=== PATIENT | male | born 1960 | race Caucasian/White ===

== ENCOUNTER 2017-01-17 22:01 | Emergency (ER) | payer OTHER ==
[2017-01-17 22:02] VITALS: BP 136/80; PULSE 100; RESP 20; TEMP 98.6; O2SAT 95
[2017-01-17 22:40] VITALS: O2SAT 96
[2017-01-17] MEDS ORDERED: RESP: ALBUTEROL 2.5 MG/IPRATROPIUM 0.5 MG NEB (SCH) ONE ×2 (22:40)
[2017-01-17] MEDS ORDERED: LORazepam 2 MG/ML VIAL IV PUSH ONE (22:45)
[2017-01-17] MEDS ORDERED: SODIUM CHLORIDE 0.9% FLUSH 10 ML FLUSH IVF PRN (22:45)
[2017-01-17] MEDS ORDERED: methylPREDNISolone SOD SUCC 125 MG/2 ML VIAL IVP ONE (22:45)
[2017-01-17] MEDS: RESP: ALBUTEROL 2.5 MG/IPRATROPIUM 0.5 MG NEB (SCH) INH ×2 (22:48→22:49)
--- NOTE | 2017-01-17 22:49 | PD ---
HPI Chief Complaint: Respiratory Symptoms Time Seen by Provider: 22:42 Travel History International Travel<30 days: No Contact w/Intl Traveler<30days: No Traveled to known affect area: No History of Present Illness HPI Patient is a 56-year-old male with history of COPD, hypertension, presents to emergency room complaints of shortness of breath. Patient reports that he has history of smoking, reports that he quit 3 years ago. Reports that he is here for [facility] as he is an alcoholic. Patient reports that he was wheezing and short of breath, reports that they would not see him due to his medical condition. Reports that he did not use anything his breathing treatments today as he did not have anything on him. Reports that he has been short of breath and wheezing all day. Patient denies any fevers or chills, no other complaints. Patient also endorses that he is an alcoholic, last was last night. Reports that he drinks 1.75 liters of vodka per day. Last drink was last night. PFSH Past Medical History Heart Rhythm Problems: Yes (PT STATES HIS 'HEART STOPS BEATING SOMETIMES' ) COPD: Yes Medical other: Yes (PROSTATE ISSUES ) Past Surgical History Other Surgery: Yes (BACK SX, COLON RESECTION ) Social History Alcohol Use: Yes (EVERYDAY ) Tobacco Use: No Substance Use: No Allergies-Medications (Allergen,Severity, Reaction): Coded Allergies: Aspirin (Verified Allergy, Intermediate, 01/17/17) Naprosyn (Verified Allergy, Intermediate, 01/17/17) Nonsteroidal Anti-Inflammatory Agts (Verified Allergy, Intermediate, ) Reported Meds & Prescriptions Reported Meds & Active Scripts Active Reported Tums E-X 750 (Calcium Carbonate (Antacid)) 750 Mg Chew 750 Mg CHEW DAILY PRN Spiriva Handihaler (Tiotropium Inh) 18 Mcg Cap 18 Mcg INH DAILY 1 capsule = 18 mcg Duoneb (Ipratropium-Albuterol Neb) 0.5-2.5 Mg/3 Ml Neb 1 Nebule INH Q4HR NEB PRN Omeprazole 20 Mg Tab 20 Mg PO DAILY Ambien (Zolpidem Tartrate) 5 Mg Tab 5 Mg PO HS PRN Doxepin (Doxepin HCl) 10 Mg Cap 10 Mg PO HS Metoprolol Tartrate 25 Mg Tab 25 Mg PO BID Advair Hfa 12 GM Inh (Fluticasone-Salmeterol 12 GM Inh) Unknown Strength Aer Unknown Dose INH BID Review of Systems General / Constitutional: No: Fever, Chills Eyes: No: Visual changes HENT: No: Headaches Cardiovascular: No: Chest Pain or Discomfort, Palpitations Respiratory: Positive: Cough, Shortness of Breath, Wheezing Gastrointestinal: No: Abdominal Pain Genitourinary: No: Dysuria Musculoskeletal: No: Pain Skin: No Rash Neurologic: No: Weakness Psychiatric: No: Depression Endocrine: No: Polydipsia Hematologic/Lymphatic: No: Easy Bruising Physical Exam Narrative GENERAL: Moderate distress SKIN: Focused skin assessment warm/dry. HEAD: Atraumatic. Normocephalic. EYES: Pupils equal and round. No scleral icterus. No injection or drainage. ENT: No nasal bleeding or discharge. Mucous membranes pink and moist. NECK: Trachea midline. No JVD. CARDIOVASCULAR: Regular rate and rhythm. No murmur appreciated. RESPIRATORY: Patient with scattered wheezing to upper and lower lobes of lungs on exam GASTROINTESTINAL: Abdomen soft, non-tender, nondistended. Hepatic and splenic margins not palpable. MUSCULOSKELETAL: No obvious deformities. No clubbing. No cyanosis. No edema. NEUROLOGICAL: Awake and alert. No obvious cranial nerve deficits. Motor grossly within normal limits. Normal speech. PSYCHIATRIC: Appropriate mood and affect; insight and judgment normal. Data Data Last Documented VS Vital Signs Date Time Temp Pulse Resp B/P Pulse Ox O2 Delivery O2 Flow Rate FiO2 01/18/17 00:42 98 22 139/76 95 Room Air 01/17/17 22:02 98.6 Orders Albuterol-Ipratropium Neb (Duoneb Neb) (01/17/17 22:40) Albuterol-Ipratropium Neb (Duoneb Neb) (01/17/17 22:40) Complete Blood Count With Diff (01/17/17 22:43) Comprehensive Metabolic Panel (01/17/17 22:43) B-Type Natriuretic Peptide (01/17/17 22:43) Act Partial Throm Time (Ptt) (01/17/17 22:43) Prothrombin Time / Inr (Pt) (01/17/17 22:43) Magnesium (Mg) (01/17/17 22:43) Urinalysis - C+S If Indicated (01/17/17 22:43) Iv Access Insert/Monitor (01/17/17 22:43) Electrocardiogram (01/17/17 22:43) Ecg Monitoring (01/17/17 22:43) Oximetry (01/17/17 22:43) Chest, Single Ap (01/17/17 22:43) Sodium Chloride 0.9% Flush (Ns Flush) (01/17/17 22:45) Methylprednisolone So Succ Inj (Solumedr (01/17/17 22:45) Albuterol-Ipratropium Neb (Duoneb Neb) (01/17/17 22:45) Lorazepam Inj (Ativan Inj) (01/17/17 22:45) Labs Laboratory Tests Test 01/17/17 01/17/17 22:50 23:35 White Blood Count 6.5 TH/MM3 Red Blood Count 4.52 MIL/MM3 Hemoglobin 9.4 GM/DL Hematocrit 31.2 % Mean Corpuscular Volume 69.1 FL Mean Corpuscular Hemoglobin 20.8 PG Mean Corpuscular Hemoglobin 30.1 % Concent Red Cell Distribution Width 18.8 % Platelet Count 219 TH/MM3 Mean Platelet Volume 7.9 FL Neutrophils (%) (Auto) 72.3 % Lymphocytes (%) (Auto) 16.2 % Monocytes (%) (Auto) 9.7 % Eosinophils (%) (Auto) 1.0 % Basophils (%) (Auto) 0.8 % Neutrophils # (Auto) 4.7 TH/MM3 Lymphocytes # (Auto) 1.0 TH/MM3 Monocytes # (Auto) 0.6 TH/MM3 Eosinophils # (Auto) 0.1 TH/MM3 Basophils # (Auto) 0.1 TH/MM3 CBC Comment DIFF FINAL Differential Comment Prothrombin Time 10.7 SEC Prothromb Time International 1.0 RATIO Ratio Activated Partial 24.0 SEC Thromboplast Time Sodium Level 141 MEQ/L Potassium Level 4.1 MEQ/L Chloride Level 102 MEQ/L Carbon Dioxide Level 28.0 MEQ/L Anion Gap 11 MEQ/L Blood Urea Nitrogen 14 MG/DL Creatinine 1.15 MG/DL Estimat Glomerular Filtration 65 ML/MIN Rate Random Glucose 98 MG/DL Calcium Level 8.5 MG/DL Magnesium Level 2.1 MG/DL Total Bilirubin 0.4 MG/DL Aspartate Amino Transf 122 U/L (AST/SGOT) Alanine Aminotransferase 200 U/L (ALT/SGPT) Alkaline Phosphatase 103 U/L B-Type Natriuretic Peptide 15 PG/ML Total Protein 7.9 GM/DL Albumin 3.8 GM/DL Urine Color YELLOW Urine Turbidity CLEAR Urine pH 5.5 Urine Specific Milo 1.025 Urine Protein TRACE mg/dL Urine Glucose (UA) NEG mg/dL Urine Ketones 10 mg/dL Urine Occult Blood NEG Urine Nitrite NEG Urine Bilirubin NEG Urine Urobilinogen LESS THAN 2.0 MG/DL Urine Leukocyte Esterase NEG Urine RBC LESS THAN 1 /hpf Urine WBC 1 /hpf Urine Squamous Epithelial <1 /hpf Cells Urine Mucus FEW /lpf Microscopic Urinalysis Comment CULT NOT INDICATED MDM Medical Decision Making Medical Screen Exam Complete: Yes Emergency Medical Condition: Yes Interpretation(s) EKG at 2240: NSR at 93bpm, qt/qtc: 356/407, no acute st or t wave changes Vital Signs Date Time Temp Pulse Resp B/P Pulse Ox O2 Delivery O2 Flow Rate FiO2 01/17/17 22:40 96 01/17/17 22:02 98.6 100 20 136/80 95 Room Air Differential Diagnosis Differential includes COPD exacerbation, pneumonia, electrolyte abnormality, impending DTs Narrative Course Patient is a 56-year-old male who presents to emergency room with complaints of shortness of breath and wheezing. Reports that he has been symptomatic all day , he has not been able to use any of his neb treatments as he forgot them at home. Reports that he is a past smoker. Denies fever/chills. Reports that he is an alcoholic, he is here for [facility] for alcohol detox. Patient is wheezing on exam, plan to give neb treatments and steroids. Will observe patient Vital Signs Date Time Temp Pulse Resp B/P Pulse Ox O2 Delivery O2 Flow Rate FiO2 01/18/17 00:42 98 22 139/76 95 Room Air 01/17/17 22:53 94 Simple Mask 01/17/17 22:40 96 01/17/17 22:02 98.6 100 20 136/80 95 Room Air Laboratory Tests Test 01/17/17 01/17/17 22:50 23:35 White Blood Count 6.5 TH/MM3 (4.0-11.0) Red Blood Count 4.52 MIL/MM3 (4.50-5.90) Hemoglobin 9.4 GM/DL (13.0-17.0) Hematocrit 31.2 % (39.0-51.0) Mean Corpuscular Volume 69.1 FL (80.0-100.0) Mean Corpuscular Hemoglobin 20.8 PG (27.0-34.0) Mean Corpuscular Hemoglobin 30.1 % Concent (32.0-36.0) Red Cell Distribution Width 18.8 % (11.6-17.2) Platelet Count 219 TH/MM3 (150-450) Mean Platelet Volume 7.9 FL (7.0-11.0) Neutrophils (%) (Auto) 72.3 % (16.0-70.0) Lymphocytes (%) (Auto) 16.2 % (9.0-44.0) Monocytes (%) (Auto) 9.7 % (0.0-8.0) Eosinophils (%) (Auto) 1.0 % (0.0-4.0) Basophils (%) (Auto) 0.8 % (0.0-2.0) Neutrophils # (Auto) 4.7 TH/MM3 (1.8-7.7) Lymphocytes # (Auto) 1.0 TH/MM3 (1.0-4.8) Monocytes # (Auto) 0.6 TH/MM3 (0-0.9) Eosinophils # (Auto) 0.1 TH/MM3 (0-0.4) Basophils # (Auto) 0.1 TH/MM3 (0-0.2) CBC Comment DIFF FINAL Differential Comment Prothrombin Time 10.7 SEC (9.8-11.6) Prothromb Time International 1.0 RATIO Ratio Activated Partial 24.0 SEC Thromboplast Time (24.3-30.1) Sodium Level 141 MEQ/L (136-145) Potassium Level 4.1 MEQ/L (3.5-5.1) Chloride Level 102 MEQ/L (98-107) Carbon Dioxide Level 28.0 MEQ/L (21.0-32.0) Anion Gap 11 MEQ/L (5-15) Blood Urea Nitrogen 14 MG/DL (7-18) Creatinine 1.15 MG/DL (0.60-1.30) Estimat Glomerular Filtration 65 ML/MIN (>89) Rate Random Glucose 98 MG/DL (74-106) Calcium Level 8.5 MG/DL (8.5-10.1) Magnesium Level 2.1 MG/DL (1.5-2.5) Total Bilirubin 0.4 MG/DL (0.2-1.0) Aspartate Amino Transf 122 U/L (15-37) (AST/SGOT) Alanine Aminotransferase 200 U/L (12-78) (ALT/SGPT) Alkaline Phosphatase 103 U/L (45-117) B-Type Natriuretic Peptide 15 PG/ML (0-100) Total Protein 7.9 GM/DL (6.4-8.2) Albumin 3.8 GM/DL (3.4-5.0) Urine Color YELLOW (YELLW/STRAW) Urine Turbidity CLEAR (CLEAR) Urine pH 5.5 (5.0-8.5) Urine Specific Milo 1.025 (1.002-1.035) Urine Protein TRACE mg/dL (NEG-TRACE) Urine Glucose (UA) NEG mg/dL (NEG) Urine Ketones 10 mg/dL (NEG) Urine Occult Blood NEG (NEG) Urine Nitrite NEG (NEG) Urine Bilirubin NEG (NEG) Urine Urobilinogen LESS THAN 2.0 MG/DL (LESS THAN 2.0) Urine Leukocyte Esterase NEG (NEG) Urine RBC LESS THAN 1 /hpf (0-3) Urine WBC 1 /hpf (0-5) Urine Squamous Epithelial <1 /hpf (0-5) Cells Urine Mucus FEW /lpf (OCC) Microscopic Urinalysis Comment CULT NOT INDICATED Last Impressions Chest X-Ray 01/17/17 7399 Signed Impressions: Service Date/Time: Tuesday, January 17, 2017 22:41 - CONCLUSION: 1. Hyperaeration characteristic of COPD 2. No acute pulmonary infiltrates. Gutierrez Madrid MD Patient reevaluated, patient feeling much better at this time. We'll give steroids, nebs treatments and have patient follow up with her primary care doctor. Patient will return to ER as needed Diagnosis Primary Impression: COPD (chronic obstructive pulmonary disease) Qualified Code: J44.1 - Chronic obstructive pulmonary disease with acute exacerbation Patient Instructions: General Instructions Additional Instructions: Please follow up with your primary care doctor Return to ER as needed Please take all medications as prescribed Med/Other Pt SpecificInfo: Prescription(s) given Scripts Azithromycin 500 Mg [id number] Mg PO DAILY #5 TAB Ref 0 Prov:Roberta Villegas DO 7/20/17 Prednisone 20 Mg Tab20 Mg PO BID 5 Days Ref 0 Prov:Roberta Villegas DO 01/18/17 Albuterol 8.5 GM Inh (Proair Hfa 8.5 GM Inh)90 Mcg/Act Aer2 Puff INH Q4-6H PRN ( SHORTNESS OF BREATH) #1 INHALER Ref 0 108 mcg/actuation Prov:Roberta Villegas DO 01/18/17 Disposition: 01 DISCHARGE HOME Condition: Stable Roberta Villegas DO Jan 17, 2017 22:49
[2017-01-17 22:53] VITALS: O2SAT 94
[2017-01-17 23:05] LABS: AUTOMATED NEUTROPHIL # 4.7 TH/MM3 (1.8-7.7); BASOPHIL # 0.1 TH/MM3 (0-0.2); BASOPHIL % 0.8 % (0.0-2.0); EOSINOPHIL # 0.1 TH/MM3 (0-0.4); HEMATOCRIT 31.2 % (39.0-51.0); HEMO FLAGS DIFF FINAL; LYMPH % 16.2 % (9.0-44.0); MEAN CELL VOLUME 69.1 FL (80.0-100.0); MEAN CORPUSCULAR HEMOGLOBIN 20.8 PG (27.0-34.0); MEAN CORPUSCULAR HGB CONC 30.1 % (32.0-36.0); MONO % 9.7 % (0.0-8.0); NEUT % 72.3 % (16.0-70.0); PLATELET COUNT 219 TH/MM3 (150-450); RED BLOOD COUNT 4.52 MIL/MM3 (4.50-5.90); RED CELL DISTRIBUTION WIDTH 18.8 % (11.6-17.2); WHITE BLOOD COUNT 6.5 TH/MM3 (4.0-11.0)
--- NOTE | 2017-01-17 23:07 | RADRPT ---
EXAM DATE/TIME: 01/17/2017 22:41 [place] COMPARISON: No previous studies available for comparison. INDICATIONS : Shortness of breath. MEDICAL HISTORY : Emphysema. SURGICAL HISTORY : None. ENCOUNTER: Initial ACUITY: 1 day PAIN SCORE: 0/10 LOCATION: Bilateral chest FINDINGS: A single view of the chest demonstrates the lungs to be symmetrically aerated without evidence of mas s, infiltrate or effusion. There is hyperaeration of both lung beltrán. There are some calcified righ t hilar lymph nodes. The cardiomediastinal contours are unremarkable. Osseous structures are intact. CONCLUSION: 1. Hyperaeration characteristic of COPD 2. No acute pulmonary infiltrates. Gutierrez Madrid MD on January 17, 2017 at 23:05 Board Certified Radiologist. This report was verified electronically.
[2017-01-17] MEDS ORDERED: ADVA115A INH (23:12)
[2017-01-17 23:13] LABS: PROTHROMBIN TIME - PATIENT 10.7 SEC (9.8-11.6)
[2017-01-17] MEDS ORDERED: DOXE10CA PO (23:19)
[2017-01-17] MEDS ORDERED: IPRASOL INH (23:19)
[2017-01-17] MEDS ORDERED: AMBI5TAB PO (23:19)
[2017-01-17] MEDS ORDERED: CALC750C21 CHEW (23:19)
[2017-01-17] MEDS ORDERED: SPIRCAP INH (23:19)
[2017-01-17] MEDS ORDERED: OMEP20TA PO (23:19)
[2017-01-17] MEDS ORDERED: METO25TA3 PO (23:19)
[2017-01-17 23:42] LABS: ALT (GPT) 200 U/L (12-78); ANION GAP 11 MEQ/L (5-15); AST (GOT) 122 U/L (15-37); BLOOD UREA NITROGEN 14 MG/DL (7-18); CHLORIDE 102 MEQ/L (98-107); GLOMERULAR FILTRATION RATE 65 ML/MIN (>89); MAGNESIUM 2.1 MG/DL (1.5-2.5); POTASSIUM 4.1 MEQ/L (3.5-5.1); SODIUM (NA) 141 MEQ/L (136-145)
[2017-01-17 23:44] LABS: ALKALINE PHOSPHATASE 103 U/L (45-117); TOTAL BILIRUBIN ADULT 0.4 MG/DL (0.2-1.0)
[2017-01-17 23:55] LABS: BLOOD, URINE NEG (NEG); COMMENT (UR) CULT NOT INDICATED; CULTURE IF INDICATED CULT NOT INDICATED; GLUCOSE,URINE NEG (NEG); KETONE, URINE 10 mg/dL (NEG); MUCUS URINE FEW /lpf (OCC); NITRITE,URINE NEG (NEG); PH, URINE 5.5 (5.0-8.5); SQUAMOUS EPITHELIAL CELL URINE <1 /hpf (0-5); URINE COLOR YELLOW (YELLW/STRAW)
[2017-01-18 00:42] VITALS: BP 139/76; PULSE 98; RESP 22; O2SAT 95
[2017-01-18] MEDS ORDERED: ALBUAER3 INH (03:18)
[2017-01-18] MEDS ORDERED: AZIT500T2 PO (03:18)
[2017-01-18] MEDS ORDERED: PRED20 PO (03:18)
[2017-01-18] MEDS ORDERED: ALBUTEROL SULFATE 90 MCG/ACT HFA 8 GM INHALER INH ONE (04:00)
--- NOTE | 2017-01-18 14:55 | EKG ---
Date Performed: 01/17/2017 Time Performed: 22:40:05 PTAGE: 56 years EKG: Sinus rhythm WITH OCCASIONAL VENTRICULAR PREMATURE COMPLEXESCompared to previous tracing, the patient is now long er bradycardic BORDERLINE ECG NO PREVIOUS TRACING DOCTOR: Tanya Rachel Interpretating Date/Time 01/18/2017 14:53:17
== END 2017-01-18 04:20 | disposition home or self-care (01) ==
LOC: NEPC 22:01
DX: J44.1 Chronic obstructive pulmonary disease with (acute) exacerbation (principal); I10 Essential (primary) hypertension; Z87.891 Personal history of nicotine dependence; Z79.899 Other long term (current) drug therapy
CPT/HCPCS: 71010; 80053; 81001; 83735; 83880; 85025; 85610; 85730; 93005; 94640; 94664; 96374; 96375; 99285; J2060; J2930